=== PATIENT | female | born 2000 | race Hispanic/Latino ===

== ENCOUNTER 2020-04-21 00:31 | Emergency (ER) | payer SELFPAY ==
[~2020-04-21] VITALS: Ht 144.8 cm; Wt 63.5 kg
== END 2020-04-21 01:33 | disposition home or self-care (01) ==
LOC: ER 00:49
DX: S60.111A Contusion of right thumb with damage to nail, initial encounter (principal); W23.1XXA Caught, crushed, jammed, or pinched between stationary objects, initial encounter; Y92.89 Other specified places as the place of occurrence of the external cause
CPT/HCPCS: 99283

== ENCOUNTER 2022-08-13 22:33 | Emergency (ER) | payer SELFPAY ==
[~2022-08-13] VITALS: Ht 144.8 cm; Wt 63.5 kg
[2022-08-13 22:57] LABS: BASOPHILS % 0.4 % (0.0-1.0); EOSINOPHILS # (AUTO) 0.4 (0.0-0.4); EOSINOPHILS % 3.8 % (0.0-6.0); HEMATOCRIT 37.7 % (34.2-44.1); HEMOGLOBIN 13.2 g/dL (12.0-16.0); LYMPHOCYTES # (AUTO) 1.2 (1.0-3.2); LYMPHOCYTES % 11.7 % (18.0-39.1); MEAN CORPUSCULAR HEMOGLOBIN 30.8 pg (28-32); MEAN CORPUSCULAR VOLUME 87.9 fL (81-99); MONOCYTES # (AUTO) 1.2 (0.2-0.8); NEUTROPHILS % 71.8 % (38.7-80.0); PLATELET COUNT 279 x10e3/uL (140-360); RED BLOOD COUNT 4.29 x10e6/uL (3.6-5.1); RED CELL DISTRIBUTION WIDTH 12.4 % (11.7-14.4)
[2022-08-13] MEDS ORDERED: CEFTRIAXONE 1 GM VIAL IV SCH (23:00)
[2022-08-13] MEDS ORDERED: IBUPROFEN 400 MG TAB PO ONE (23:00)
[2022-08-13] MEDS ORDERED: SODIUM CHLORIDE 0.9% 1000ML 1,910 ML IV SCH (23:00)
[2022-08-13 23:07] LABS: INR 0.95; PROTHROMBIN TIME 13.2 seconds (11.9-14.5)
[2022-08-13 23:08] LABS: PARTIAL THROMBOPLASTIN TIME 27.2 seconds (23.8-35.5)
[2022-08-13 23:16] LABS: ALBUMIN 3.6 g/dL (3.5-5.0); ALBUMIN/GLOBULIN RATIO 1.4 (0.8-2.0); ANION GAP 13.7 mmol/L (8-16); CALCIUM 8.6 mg/dL (8.4-10.2); CREATININE, SERUM 0.7 mg/dL (0.57-1.11); POTASSIUM 3.7 mmol/L (3.5-5.1)
[2022-08-13 23:20] LABS: CLARITY,URINE CLOUDY (CLEAR); COLOR,URINE YELLOW (YELLOW); KETONES,URINE NEGATIVE (NEGATIVE); LEUKOCYTE ESTERASE ,URINE MODERATE (NEGATIVE); NITRITE,URINE POSITIVE (NEGATIVE); PROTEIN,URINE DIPSTICK 1+ (NEGATIVE); URINE UROBILINOGEN 0.2 mg/dL (0.2 - 1)
[2022-08-13 23:25] LABS: BACTERIA,URINE MANY /HPF; EPITHELIAL CELLS,URINE FEW /LPF; WBC,URINE (MAN) >50 /HPF (0-5)
[2022-08-13] MEDS ORDERED: ONDANSETRON HCL INJ 2MG/ML 2ML 2 MG/ML VIAL IV STA (23:56)
[2022-08-14] MEDS ORDERED: CEPHALEXIN500 MG PO (00:30)
[2022-08-14 00:42] VITALS: BP 121/71
== END 2022-08-14 00:36 | disposition home or self-care (01) ==
LOC: ER 22:35
DX: R50.9 Fever, unspecified (principal); N39.0 Urinary tract infection, site not specified; R05.9 Cough, unspecified; J45.909 Unspecified asthma, uncomplicated; Z20.822 Contact with and (suspected) exposure to COVID-19
CPT/HCPCS: 36415; 71046; 80053; 81001; 83605; 85025; 85610; 85730; 87040; 99284; J0696; J2405; J7030; U0002

== ENCOUNTER 2022-09-09 20:23 | Emergency (ER) | payer SELFPAY ==
[~2022-09-09] VITALS: Ht 144.8 cm; Wt 63.5 kg
[~2022-09-09 20:23] MED LIST: CEPHALEXIN500 MG PO
[2022-09-09] MEDS ORDERED: ACETAMINOPHEN 325 MG TAB PO ONE (21:00)
[2022-09-09] MEDS ORDERED: SODIUM CHLORIDE 0.9% 1000ML 1,000 ML IV ONE (21:00)
[2022-09-09 21:04] LABS: CLARITY,URINE CLOUDY (CLEAR); COLOR,URINE YELLOW (YELLOW); KETONES,URINE TRACE (NEGATIVE); LEUKOCYTE ESTERASE ,URINE SMALL (NEGATIVE); NITRITE,URINE POSITIVE (NEGATIVE); PROTEIN,URINE DIPSTICK 1+ (NEGATIVE); URINE UROBILINOGEN 1 mg/dL (0.2 - 1)
[2022-09-09 21:06] LABS: BASOPHILS % 0.3 % (0.0-1.0); EOSINOPHILS # (AUTO) 0.1 (0.0-0.4); EOSINOPHILS % 0.6 % (0.0-6.0); HEMATOCRIT 34.9 % (34.2-44.1); HEMOGLOBIN 12.6 g/dL (12.0-16.0); LYMPHOCYTES # (AUTO) 1.4 (1.0-3.2); LYMPHOCYTES % 8.9 % (18.0-39.1); MEAN CORPUSCULAR HEMOGLOBIN 31.3 pg (28-32); MEAN CORPUSCULAR HGB CONC 36.1 g/dL (31-35); MEAN CORPUSCULAR VOLUME 86.8 fL (81-99); MONOCYTES # (AUTO) 1.7 (0.2-0.8); MONOCYTES % 10.6 % (4.4-11.3); NEUTROPHILS # (AUTO) 12.6 (2.1-6.9); NEUTROPHILS % 79.2 % (38.7-80.0); PLATELET COUNT 303 x10e3/uL (140-360); RED BLOOD COUNT 4.02 x10e6/uL (3.6-5.1); RED CELL DISTRIBUTION WIDTH 12.3 % (11.7-14.4)
[2022-09-09 21:15] LABS: BACTERIA,URINE MANY /HPF; EPITHELIAL CELLS,URINE MODERATE /LPF; WBC,URINE (MAN) 21-50 /HPF (0-5)
[2022-09-09 21:20] LABS: ALBUMIN 3.9 g/dL (3.5-5.0); ALBUMIN/GLOBULIN RATIO 1.2 (0.8-2.0); ANION GAP 13.8 mmol/L (8-16); CALCIUM 8.8 mg/dL (8.4-10.2); CREATININE, SERUM 0.65 mg/dL (0.57-1.11); POTASSIUM 3.8 mmol/L (3.5-5.1)
[2022-09-09] MEDS ORDERED: CEFDINIR300 MG PO (22:56)
[2022-09-09] MEDS ORDERED: ONDANSETRON ODT4 MG PO (22:56)
[2022-09-09] MEDS ORDERED: PYRIDIUM200 MG PO (22:56)
[2022-09-09 23:27] VITALS: BP 114/71
== END 2022-09-09 23:23 | disposition home or self-care (01) ==
LOC: ER 21:03
DX: R50.9 Fever, unspecified (principal); N12 Tubulo-interstitial nephritis, not specified as acute or chronic; J45.909 Unspecified asthma, uncomplicated; Z20.822 Contact with and (suspected) exposure to COVID-19
CPT/HCPCS: 36415; 71045; 74176; 80053; 81001; 81025; 83605; 85025; 87040; 87086; 87186; 93005; 99284; J0696; J7030; U0002

== ENCOUNTER 2023-04-01 08:59 | Emergency (ER) | payer OTHER ==
[~2023-04-01] VITALS: Ht 144.8 cm; Wt 63.5 kg
[~2023-04-01 08:59] MED LIST changes: +CEFDINIR300 MG PO; +KETOROLAC TROME10 MG PO; +ONDANSETRON ODT4 MG PO; +PREDNISONE20 MG PO; +PYRIDIUM200 MG PO; +VENTOLIN HFA18 GM INH
[2023-04-01] MEDS ORDERED: ACETAMINOPHEN 325 MG TAB PO ONE (09:15)
[2023-04-01 09:51] LABS: STREPTOCOCCUS GRP A ANTIGEN NEGATIVE (NEGATIVE)
[2023-04-01 09:52] LABS: INFLUENZAE A&B ANTIGEN (RAPID) NEGATIVE (NEGATIVE)
[2023-04-01 10:50] VITALS: O2SAT 99
[2023-04-01] MEDS ORDERED: NAPROXEN250 MG PO (10:53)
== END 2023-04-01 11:12 | disposition home or self-care (01) ==
LOC: ER 09:21
DX: R50.9 Fever, unspecified (principal); J06.9 Acute upper respiratory infection, unspecified; R05.9 Cough, unspecified; J45.909 Unspecified asthma, uncomplicated; Z20.822 Contact with and (suspected) exposure to COVID-19
CPT/HCPCS: 83518; 87070; 87400; 99283; U0002; 99284

== ENCOUNTER 2023-12-17 20:38 | Emergency (ER) | payer SELFPAY ==
[~2023-12-17] VITALS: Ht 142.2 cm; Wt 63.5 kg
[~2023-12-17 20:38] MED LIST changes: +NAPROXEN250 MG PO
[2023-12-17 22:26] LABS: INFLUENZAE A&B ANTIGEN (RAPID) NEGATIVE (NEGATIVE)
[2023-12-17 22:27] LABS: RESPIRATORY SYNC. VIRUS NEGATIVE (NEGATIVE)
[2023-12-18 00:05] VITALS: PULSE 80; RESP 16; TEMP 98.7; O2SAT 100
== END 2023-12-18 00:06 | disposition home or self-care (01) ==
LOC: ER 20:45
DX: R06.00 Dyspnea, unspecified (principal); R05.9 Cough, unspecified; R09.81 Nasal congestion; J45.909 Unspecified asthma, uncomplicated; Z11.52 Encounter for screening for COVID-19
CPT/HCPCS: 71045; 87400; 87420; 99283; U0002

== ENCOUNTER 2024-06-02 21:21 | Emergency (ER) | payer SELFPAY ==
[~2024-06-02] VITALS: Ht 144.8 cm; Wt 63.5 kg
[2024-06-02 22:43] VITALS: PULSE 73; RESP 17; TEMP 98.3
[2024-06-02 23:22] LABS: BASOPHILS # (AUTO) 0.1 (0.0-0.1); BASOPHILS % 0.6 % (0.0-1.0); EOSINOPHILS # (AUTO) 0.2 (0.0-0.4); EOSINOPHILS % 1.7 % (0.0-6.0); HEMATOCRIT 42.5 % (34.2-44.1); HEMOGLOBIN 14.3 g/dL (12.0-16.0); LYMPHOCYTES # (AUTO) 2.7 (1.0-3.2); LYMPHOCYTES % 27.3 % (18.0-39.1); MEAN CORPUSCULAR HEMOGLOBIN 31.8 pg (28-32); MEAN CORPUSCULAR HGB CONC 33.6 g/dL (31-35); MEAN CORPUSCULAR VOLUME 94.7 fL (81-99); MONOCYTES # (AUTO) 0.7 (0.2-0.8); MONOCYTES % 7.1 % (4.4-11.3); NEUTROPHILS # (AUTO) 6.2 (2.1-6.9); PLATELET COUNT 355 x10e3/uL (140-360); RED BLOOD COUNT 4.49 x10e6/uL (3.6-5.1); RED CELL DISTRIBUTION WIDTH 11.9 % (11.7-14.4); WHITE BLOOD COUNT 9.83 x10e3/uL (4.8-10.8)
[2024-06-02] MEDS: SODIUM CHLORIDE 0.9% 1000ML 1,000 ML IV STA (23:42)
[2024-06-02] MEDS: ONDANSETRON HCL INJ 2MG/ML 2ML 2 MG/ML VIAL IV STA (23:43)
[2024-06-02 23:48] LABS: ALBUMIN 4.7 g/dL (3.5-5.0); ALBUMIN/GLOBULIN RATIO 1.4 (0.8-2.0); BILIRUBIN,TOTAL 0.5 mg/dL (0.2-1.2); CALCIUM 9.4 mg/dL (8.4-10.2); CREATININE, SERUM 0.68 mg/dL (0.57-1.11)
[2024-06-03 01:31] LABS: CLARITY,URINE CLEAR (CLEAR); COLOR,URINE YELLOW (YELLOW)
[2024-06-03 01:32] LABS: BILIRUBIN,URINE NEGATIVE (NEGATIVE); GLUCOSE, URINE NEGATIVE (NEGATIVE); KETONES,URINE 1+ (NEGATIVE); LEUKOCYTE ESTERASE ,URINE NEGATIVE (NEGATIVE); NITRITE,URINE NEGATIVE (NEGATIVE); PH,URINE 7 (5 - 7); PROTEIN,URINE DIPSTICK NEGATIVE (NEGATIVE); URINE UROBILINOGEN 1 mg/dL (0.2 - 1)
[2024-06-03 01:35] LABS: RBC,URINE 0-5 /HPF (0-5); WBC,URINE (MAN) 0-5 /HPF (0-5)
[2024-06-03 01:36] LABS: BACTERIA,URINE MODERATE /HPF; EPITHELIAL CELLS,URINE MANY /LPF; PREGNANCY TEST, URINE NEGATIVE (NEGATIVE); YEAST,URINE FEW
[2024-06-03 03:46] VITALS: BP 123/95; PULSE 84; RESP 18; TEMP 98.6; O2SAT 100
[2024-06-03] MEDS ORDERED: IOPAMIDOL 370 MG/ML 100 ML INFUS..BTL INJ ONE (06:57)
== END 2024-06-03 03:21 | disposition home or self-care (01) ==
LOC: ER 21:30
DX: R10.33 Periumbilical pain (principal); R11.2 Nausea with vomiting, unspecified; K86.89 Other specified diseases of pancreas; K76.9 Liver disease, unspecified; J45.909 Unspecified asthma, uncomplicated
CPT/HCPCS: 36415; 74177; 80053; 81001; 81025; 83690; 85025; 99284; J2405; J7030; Q9967

== ENCOUNTER 2025-02-05 06:38 | Emergency (ER) | payer OTHER ==
[~2025-02-05] VITALS: Ht 144.8 cm; Wt 68.0 kg
[2025-02-05 06:51] VITALS: TEMP 98.1
[2025-02-05] MEDS ORDERED: KETOROLAC TROMETHAMINE 30 MG/ML VIAL IV STA (07:00)
[2025-02-05] MEDS ORDERED: SODIUM CHLORIDE FLUSH 10 ML SYR IV PRN (07:00)
[2025-02-05 08:01] LABS: BASOPHILS % 0.6 % (0.0-1.0); EOSINOPHILS % 3.4 % (0.0-6.0); LYMPHOCYTES % 27.9 % (18.0-39.1); MONOCYTES % 7.5 % (4.4-11.3); NEUTROPHILS % 60.4 % (38.7-80.0); RED CELL DISTRIBUTION WIDTH 11.9 % (11.7-14.4)
[2025-02-05 08:15] LABS: EST GLOMERULAR FILTRATION RATE 131 ML/MIN (>=60)
[2025-02-05 09:00] VITALS: PULSE 74; RESP 16; O2SAT 99
== END 2025-02-05 09:25 | disposition home or self-care (01) ==
LOC: ER 06:43
DX: R07.89 Other chest pain (principal); J45.909 Unspecified asthma, uncomplicated
CPT/HCPCS: 36415; 71046; 80053; 84484; 84702; 85025; 85379; 93005; 94760; 99284

== ENCOUNTER 2025-02-12 21:03 | Emergency (ER) | payer OTHER ==
[~2025-02-12] VITALS: Ht 144.8 cm; Wt 68.0 kg
[2025-02-12 21:05] VITALS: PULSE 72; RESP 20; TEMP 98.6; O2SAT 100
== END 2025-02-12 22:30 | disposition left against medical advice (07) ==
LOC: ER 22:30
DX: R21 Rash and other nonspecific skin eruption (principal)